=== PATIENT | female | born 1960 | race Asian ===

== ENCOUNTER → 2024-01-19 08:36 | Outpatient (REF) | payer BC, SELFPAY | LOC: RAD 08:36 | PROVIDERS: ATTENDING PHYSICIAN Specialist | DX: K82.4 Cholesterolosis of gallbladder (principal) | CPT/HCPCS: 76700 ==

== ENCOUNTER → 2024-02-26 11:14 | Outpatient (REF) | payer BC, SELFPAY | LOC: RAD 11:14 | PROVIDERS: ATTENDING PHYSICIAN Internal Medicine Rheumatology; FAMILY PHYSICIAN Family Medicine | DX: M17.12 Unilateral primary osteoarthritis, left knee (principal); M25.562 Pain in left knee; R29.890 Loss of height | CPT/HCPCS: 72072; 72100; 73560; 73565 ==

== ENCOUNTER → 2025-03-21 09:25 | Outpatient (REF) | payer BC, SELFPAY | LOC: RAD 09:25 | PROVIDERS: ATTENDING PHYSICIAN Specialist; FAMILY PHYSICIAN Family Medicine | DX: K82.4 Cholesterolosis of gallbladder (principal) | CPT/HCPCS: 76700 ==